=== PATIENT | female | born 1990 | race Caucasian/White ===

== ENCOUNTER 2018-08-20 15:56 | Emergency (ER) | payer OTHER ==
[~2018-08-20] VITALS: Ht 167.6 cm; Wt 68.0 kg
== END 2018-08-20 16:16 | disposition left against medical advice (07) ==
LOC: ED 15:56
DX: Z53.21 Procedure and treatment not carried out due to patient leaving prior to being seen by health care provider (principal)

== ENCOUNTER 2019-08-29 11:54 | Emergency (ER) | payer OTHER ==
[~2019-08-29] VITALS: Ht 167.6 cm; Wt 68.0 kg
[2019-08-29 13:01] LABS: BILIRUBIN NEGATIVE (NEGATIVE); BLOOD 3+ (NEGATIVE); CLARITY CLOUDY (CLEAR); COLOR YELLOW (YELLOW); GLUCOSE NEGATIVE (NEGATIVE); KETONE NEGATIVE (NEGATIVE)
[2019-08-29 13:02] LABS: BACTERIA 4+; LEUKO ESTERASE 3+ (NEGATIVE); NITRITE POSITIVE (NEGATIVE); PH 7.5 (5.0-9.0); RBC 21-30 rbc/hpf (0-2); UROBILINOGEN 0.2 E.U./dl (0.2-1.0); WBC 51-100 wbc/hpf (0-5)
[2019-08-29 13:09] LABS: BASO # 0.1 10*3/uL (0.0-0.1); BASO % 0.6 % (0.0-1.0); EOS # 0.1 10*3/uL (0.0-0.4); HEMATOCRIT 27.8 % (37.0-47.0); HEMOGLOBIN 8.8 g/dl (12.0-16.0); LYMPH % 24.1 % (27.0-41.0); MEAN CORPUSCULAR HGB 25.7 pg (27.0-31.0); MEAN CORPUSCULAR HGB CONC 31.7 g/dl (33.0-37.0); MEAN PLATELET VOLUME 9.9 fl (9.6-12.3); MONO # 0.5 10*3/uL (0.1-1.0); NEUT # 5.5 10*3/uL (2.3-7.9); NEUT % 67.8 % (47.0-73.0); PLATELET COUNT AUTOMATED 291 10*3/uL (130-400); RED BLOOD COUNT 3.43 10*6/uL (4.10-5.10); RED CELL DISTRI WIDTH 14.5 % (0-14.5); WHITE BLOOD COUNT 8.2 10*3/uL (4.8-10.8)
[2019-08-29 13:23] LABS: ALBUMIN 2.4 gm/dl (3.1-4.5); ALKALINE PHOSPHATASE 148 U/L (45-117); BUN 18 mg/dl (7-24); CHLORIDE 107 mmol/L (98-107); CREATININE 0.88 mg/dL (0.55-1.02); POTASSIUM 4.2 mmol/L (3.5-5.1); SGOT/AST 44 IU/L (3-35); SGPT/ALT 70 U/L (12-78); SODIUM 140 mmol/L (136-145); TOTAL PROTEIN 6.7 gm/dL (6.4-8.2)
== END 2019-08-29 12:35 | disposition left against medical advice (07) ==
LOC: ED 11:54
PROVIDERS: Physician Assistant
DX: K61.1 Rectal abscess (principal)

== ENCOUNTER 2020-03-30 11:14 | Emergency (ER) | payer OTHER ==
[~2020-03-30] VITALS: Ht 167.6 cm; Wt 78.9 kg
[2020-03-30 12:08] LABS: BASO % 0.8 % (0.0-1.0); EOS # 0.1 10*3/uL (0.0-0.4); EOS % 1.8 % (1.0-4.0); HEMATOCRIT 33.7 % (37.0-47.0); LYMPH % 19.1 % (27.0-41.0); MEAN CELL VOLUME 74.6 fl (81.0-99.0); MEAN CORPUSCULAR HGB 22.3 pg (27.0-31.0); MEAN PLATELET VOLUME 10.7 fl (9.6-12.3); MONO # 0.2 10*3/uL (0.1-1.0); MONO % 3.7 % (3.0-9.0); NEUT # 3.8 10*3/uL (2.3-7.9); NEUT % 74.4 % (47.0-73.0); PLATELET COUNT AUTOMATED 209 10*3/uL (130-400); RED BLOOD COUNT 4.52 10*6/uL (4.10-5.10); RED CELL DISTRI WIDTH 16.3 % (0-14.5); WHITE BLOOD COUNT 5.1 10*3/uL (4.8-10.8)
[2020-03-30 12:20] LABS: ALBUMIN 3.9 gm/dl (3.1-4.5); ALKALINE PHOSPHATASE 84 U/L (45-117); BUN 20 mg/dl (7-24); CHLORIDE 110 mmol/L (98-107); CREATININE 0.76 mg/dL (0.55-1.02); POTASSIUM 3.9 mmol/L (3.5-5.1); SGOT/AST 36 IU/L (3-35); SGPT/ALT 45 U/L (12-78); SODIUM 141 mmol/L (136-145)
[2020-03-30] MEDS ORDERED: TEGRETOL-XR 10100 MG PO (12:20)
== END 2020-03-30 12:25 | disposition home or self-care (01) ==
LOC: ED 11:14
PROVIDERS: Emergency Medicine
DX: R56.9 Unspecified convulsions (principal)